=== PATIENT | female | born 1960 ===

== ENCOUNTER 2021-05-07 07:08 | Outpatient (CLI) | payer OTHER | END 2021-05-07 07:18 | disposition home or self-care (01) | LOC: MAMO-SONO 07:08 | PROVIDERS: ATTEND General Practice | DX: N63.0 Unspecified lump in unspecified breast (principal); Z12.31 Encounter for screening mammogram for malignant neoplasm of breast ==

== ENCOUNTER → 2021-05-08 07:48 | Outpatient (CLI) | payer OTHER | END | disposition home or self-care (01) | LOC: LAB 07:48 | PROVIDERS: ATTEND General Practice | DX: D64.89 Other specified anemias (principal); N39.0 Urinary tract infection, site not specified; I10 Essential (primary) hypertension; E03.8 Other specified hypothyroidism; E78.89 Other lipoprotein metabolism disorders; E55.9 Vitamin D deficiency, unspecified; R10.84 Generalized abdominal pain; E11.65 Type 2 diabetes mellitus with hyperglycemia ==

== ENCOUNTER 2021-06-01 08:00 | Outpatient (CLI) | payer OTHER | END 2021-06-01 08:30 | disposition home or self-care (01) | LOC: PPH VACUNA 08:00 | DX: Z23 Encounter for immunization (principal) ==

== ENCOUNTER 2021-06-22 08:00 | Outpatient (CLI) | payer OTHER | END 2021-06-22 08:30 | disposition home or self-care (01) | LOC: PPH VACUNA 08:00 | PROVIDERS: ATTEND Emergency Medicine Pediatric Emergency Medicine | DX: Z23 Encounter for immunization (principal) ==

== ENCOUNTER 2022-04-29 12:03 | Emergency (ER) | payer OTHER ==
[~2022-04-29] VITALS: Ht 160 cm; Wt 59.0 kg
== END 2022-04-29 16:27 | disposition home or self-care (01) ==
LOC: ER 12:03
DX: M54.9 Dorsalgia, unspecified (principal); H66.90 Otitis media, unspecified, unspecified ear

== ENCOUNTER 2022-05-07 08:27 | Outpatient (CLI) | payer OTHER | END 2022-05-07 08:48 | disposition home or self-care (01) | LOC: MAMO-SONO 08:27 | PROVIDERS: ATTEND General Practice | DX: Z12.31 Encounter for screening mammogram for malignant neoplasm of breast (principal); N63.0 Unspecified lump in unspecified breast ==

== ENCOUNTER 2023-02-10 11:19 | Outpatient (CLI) | payer OTHER | END 2023-02-10 11:23 | disposition home or self-care (01) | LOC: SONOGRAMA 11:19 | PROVIDERS: ATTEND General Practice | DX: E03.9 Hypothyroidism, unspecified (principal) ==

== ENCOUNTER 2023-05-13 07:11 | Outpatient (CLI) | payer OTHER | END 2023-05-13 07:16 | disposition home or self-care (01) | LOC: SONOGRAMA 07:11 | PROVIDERS: ATTEND Pathology Anatomic Pathology & Clinical Pathology | DX: D34 Benign neoplasm of thyroid gland (principal); E04.9 Nontoxic goiter, unspecified ==

== ENCOUNTER → 2023-07-02 | Outpatient (CLI) | payer OTHER | END | disposition home or self-care (01) | LOC: RAD 16:03 | DX: M06.4 Inflammatory polyarthropathy (principal); M79.672 Pain in left foot ==

== ENCOUNTER 2023-10-14 10:48 | Outpatient (CLI) | payer OTHER | END 2023-10-14 10:50 | disposition home or self-care (01) | LOC: MAMO-SONO 10:48 | PROVIDERS: ATTEND General Practice | DX: Z12.31 Encounter for screening mammogram for malignant neoplasm of breast (principal) ==

== ENCOUNTER 2024-01-08 13:42 | Outpatient (CLI) | payer OTHER | END 2024-01-08 13:46 | disposition home or self-care (01) | LOC: RAD 13:42 | PROVIDERS: ATTEND General Practice | DX: M06.4 Inflammatory polyarthropathy (principal); M25.561 Pain in right knee ==

== ENCOUNTER 2024-04-19 11:07 | Outpatient (CLI) | payer OTHER | END 2024-04-19 11:10 | disposition home or self-care (01) | LOC: RAD 11:07 | PROVIDERS: ATTEND Internal Medicine Pulmonary Disease | DX: R05.3 Chronic cough (principal) ==

== ENCOUNTER 2024-10-21 10:08 | Outpatient (CLI) | payer OTHER | END 2024-10-21 10:12 | disposition home or self-care (01) | LOC: MAMO-SONO 10:08 | PROVIDERS: ATTEND General Practice | DX: N64.4 Mastodynia (principal); Z12.31 Encounter for screening mammogram for malignant neoplasm of breast ==

== ENCOUNTER 2025-03-02 14:09 | Outpatient (CLI) | payer OTHER | END 2025-03-02 14:16 | disposition home or self-care (01) | LOC: RAD 14:09 | PROVIDERS: ATTEND General Practice | DX: M06.4 Inflammatory polyarthropathy (principal); M54.50 Low back pain, unspecified ==

== ENCOUNTER 2025-04-19 10:44 | Outpatient (CLI) | payer OTHER | END 2025-04-19 10:50 | disposition home or self-care (01) | LOC: SONOGRAMA 10:44 | PROVIDERS: ATTEND General Practice | DX: R31.29 Other microscopic hematuria (principal) ==

== ENCOUNTER 2025-05-03 09:00 | Outpatient (CLI) | payer OTHER | END 2025-05-03 09:03 | disposition home or self-care (01) | LOC: MRI 09:00 | PROVIDERS: ATTEND Physical Medicine & Rehabilitation Hospice and Palliative Medicine | DX: M54.50 Low back pain, unspecified (principal); M51.87 Other intervertebral disc disorders, lumbosacral region | CPT/HCPCS: 72148 ==